=== PATIENT | female | born 1945 | race Caucasian/White ===

== ENCOUNTER 2020-02-05 15:19 | Outpatient (CLI) | payer MEDICARE, BC ==
[~2020-02-05 15:19] MED LIST: BRIM5DRO OP; GUAI100L97 PO; MAGN400C PO; MULT-955 PO; OMEG500C PO; TRACE MINERALS PO
== END 2020-02-05 23:59 | disposition home or self-care (01) ==
LOC: RAD 15:19
PROVIDERS: ATTEND Nurse Practitioner Family
DX: R47.1 Dysarthria and anarthria (principal); R13.12 Dysphagia, oropharyngeal phase
CPT/HCPCS: 74230